=== PATIENT | male | born 1995 | race American Indian/Alaskan Native ===

== ENCOUNTER 2018-12-18 02:06 | Emergency (ER) | payer SELFPAY ==
[2018-12-18 02:17] VITALS: BP 121/77
== END 2018-12-18 09:58 | disposition left against medical advice (07) ==
LOC: ED 02:06
DX: N48.9 Disorder of penis, unspecified (principal); Z53.21 Procedure and treatment not carried out due to patient leaving prior to being seen by health care provider

== ENCOUNTER 2019-01-07 02:33 | Emergency (ER) | payer MEDICAID, OTHER ==
--- NOTE | 2019-01-07 04:13 | Emergency Department Report ---
Chief Complaint: Upper Respiratory Infection Stated Complaint: MEDICAL EVALUATON Time Seen by Provider: 01/07/19 04:10 - HPI History of Present Illness: Pt is a 23 yo male who presents to the ED with a requests for HIV testing. pt states that he had unprotected intercourse and would like receive testing. pt denies any penile discharge, urinary sx, penile discharge, testicular pain, or testicular edema. - Exam Vital Signs: Vital Signs 01/07/19 02:41 Temperature 98.4 F Pulse Rate 73 Respiratory 18 Rate Blood Pressure 137/90 O2 Sat by Pulse 99 Oximetry MSE screening note: Focused history performed pt is asymptomatic. vitals are normal. pt requests HIV testing. discussed with pt that HIV testing is not routinely completed in the emergency department. pt given list of resources. advised pt to be seen by health department or primary care to receive testing. ED Disposition for MSE Clinical Impression: Concern about STD in male without diagnosis Disposition: - MED SCREENING EXAM-LEFT Is pt being admited?: No Does the pt Need Aspirin: No Condition: Stable Additional Instructions: please follow up with a primary care doctor or the health department to receive testing. given list of resources in the surrounding area. Referrals: PRIMARY CARE [Primary Care Provider] - 2-3 Days [facility], [LAB/CONTRACT] - 2-3 Days [facility] [Outside] - 2-3 Days [facility] [Outside] - 2-3 Days [facility] [Outside] - 2-3 Days Time of Disposition: 04:11 Print Language: MOROCC[place]
[2019-01-07 04:28] VITALS: BP 121/79
== END 2019-01-07 04:40 | disposition left against medical advice (07) ==
LOC: ED 02:33
DX: Z11.3 Encounter for screening for infections with a predominantly sexual mode of transmission (principal)

== ENCOUNTER 2020-05-08 13:25 | Emergency (ER) | payer SELFPAY ==
[2020-05-08 13:34] VITALS: BP 114/66
== END 2020-05-08 15:30 | disposition left against medical advice (07) ==
LOC: ED 13:25
DX: Z20.2 Contact with and (suspected) exposure to infections with a predominantly sexual mode of transmission (principal); Z53.21 Procedure and treatment not carried out due to patient leaving prior to being seen by health care provider